=== PATIENT | female | born 1955 | race Asian ===

== ENCOUNTER 2020-07-08 15:39 | Emergency (ER) | payer BC ==
[2020-07-08 16:04] VITALS: TEMP 97.9; BMI 27.5
[2020-07-08] MEDS ORDERED: MECLIZINE HCL 25 MG TABLET (FP) PO ONE ×2 (16:34→18:08)
[2020-07-08] MEDS ORDERED: ONDANSETRON *ODT* 4 MG TABLET SL ONE (16:34)
[2020-07-08] MEDS ORDERED: ONDANSETRON *ODT* 4 MG TABLET ONE (16:36)
[2020-07-08] MEDS ORDERED: MECLIZINE HCL 25 MG TABLET (FP) ONE (16:36)
[2020-07-08 17:18] LABS: BASO % 0.7 % (0-2.0); HEMATOCRIT 39.9 % (32.4-45.2); HEMOGLOBIN 13.1 GM/dL (10.7-15.3); LYMPH % 25.5 % (8-40); MCH 29.3 pg (25.7-33.7); MEAN CELL VOLUME 88.8 fl (80-96); MEAN PLT VOLUME 9.9 fl (7.5-11.1); MONO % 6.5 % (3.8-10.2); NEUT % 64.3 % (42.8-82.8); PLATELET COUNT 177 K/MM3 (134-434); RBC 4.49 M/mm3 (3.60-5.2); RDW 14.5 % (11.6-15.6); WHITE BLOOD COUNT 5.9 K/mm3 (4.0-10.0)
[2020-07-08 17:36] LABS: BLOOD UREA NITROGEN 17.4 mg/dL (7-18); CALCIUM 9.4 mg/dL (8.5-10.1)
[2020-07-08 17:37] LABS: MAGNESIUM 2.5 mg/dL (1.8-2.4)
[2020-07-08 17:40] LABS: CREATININE 0.8 mg/dL (0.55-1.3)
[2020-07-08 17:41] LABS: BILIRUBIN,TOTAL 0.4 mg/dL (0.2-1); TOT PROT 8.1 g/dl (6.4-8.2)
[2020-07-08 17:41] LABS: URINE APPEARANCE CLEAR; URINE BILIRUBIN NEGATIVE (NEGATIVE); URINE COLOR YELLOW; URINE GLUCOSE (UA) NEGATIVE (NEGATIVE); URINE KETONE NEGATIVE (NEGATIVE); URINE LEUK ESTERASE NEGATIVE (NEGATIVE); URINE NITRITE NEGATIVE (NEGATIVE); URINE PROTEIN NEGATIVE (NEGATIVE); URINE UROBILINOGEN 0.2 mg/dL (0.2-1.0)
[2020-07-08] MEDS ORDERED: MECLIZINE HCL 12.5 MG TABLET ONE (18:47)
[2020-07-08 18:59] VITALS: BP 143/61; PULSE 54
== END 2020-07-08 18:50 | disposition home or self-care (01) ==
LOC: JER 15:39
DX: R42 Dizziness and giddiness (principal)
CPT/HCPCS: 36415; 70450-TC; 80053; 81003; 83735; 85025; 93005; 93010; 99285-25; Q0162

== ENCOUNTER 2020-10-27 20:59 | Emergency (ER) | payer OTHER, BC ==
[2020-10-27 21:20] VITALS: TEMP 97.5; BMI 27.3
[2020-10-27] MEDS ORDERED: ONDANSETRON 4 MG TABLET PO ONE (22:22)
[2020-10-27] MEDS ORDERED: HYDROCHLOROTHIAZIDE 25 MG TABLET (FP) PO ONE (22:23)
[2020-10-27] MEDS ORDERED: MECLIZINE HCL 25 MG TABLET (FP) PO ONE (22:24)
[2020-10-27] MEDS ORDERED: MECLIZINE HCL 25 MG TABLET (FP) ONE (22:35)
[2020-10-27] MEDS ORDERED: HYDROCHLOROTHIAZIDE 25 MG TABLET (FP) ONE (22:35)
[2020-10-27] MEDS ORDERED: ONDANSETRON *ODT* 4 MG TABLET ONE (22:36)
[2020-10-27 22:54] LABS: BASO % 0.7 % (0-2.0); EOS % 2.8 % (0-4.5); HEMATOCRIT 36.9 % (32.4-45.2); HEMOGLOBIN 12.4 GM/dL (10.7-15.3); LYMPH % 13.3 % (8-40); MCH 29.1 pg (25.7-33.7); MCHC 33.5 g/dl (32.0-36.0); MEAN CELL VOLUME 87.1 fl (80-96); MEAN PLT VOLUME 9.1 fl (7.5-11.1); MONO % 5.1 % (3.8-10.2); NEUT % 78.1 % (42.8-82.8); PLATELET COUNT 160 10^3/uL (134-434); RBC 4.24 M/mm3 (3.60-5.2); RDW 14.4 % (11.6-15.6); WHITE BLOOD COUNT 7.7 K/mm3 (4.0-10.0)
[2020-10-27 23:13] LABS: CHLORIDE 105 mmol/L (98-107); SODIUM 138 mmol/L (136-145)
[2020-10-27 23:15] LABS: ALBUMIN 3.8 g/dl (3.4-5.0); ANION GAP 6 MMOL/L (8-16); BLOOD UREA NITROGEN 22.7 mg/dL (7-18); CALCIUM 8.6 mg/dL (8.5-10.1); CO2 27 mmol/L (21-32)
[2020-10-27 23:16] LABS: GLUCOSE,RANDOM 124 mg/dL (74-106)
[2020-10-27 23:18] LABS: SGOT/AST 20 U/L (15-37); SGPT/ALT 33 U/L (13-61)
[2020-10-27 23:20] LABS: BILIRUBIN,TOTAL 0.2 mg/dL (0.2-1); TOT PROT 7.4 g/dl (6.4-8.2)
[2020-10-27 23:21] LABS: ALK PHOS 46 U/L (45-117)
[2020-10-28 00:22] VITALS: BP 123/61; PULSE 58
== END 2020-10-28 00:21 | disposition home or self-care (01) ==
LOC: JER 20:59
DX: I10 Essential (primary) hypertension (principal)
CPT/HCPCS: 36415; 80053; 82962; 84484; 85025; 93005; 93010; 99284-25